=== PATIENT | female | born 1995 | race Asian ===

== ENCOUNTER 2020-10-18 11:52 | Emergency (ER) | payer OTHER ==
[~2020-10-18] VITALS: Ht 157.5 cm; Wt 51.8 kg
[2020-10-18] MEDS ORDERED: methocarbamoL 500 MG TAB PO ONE (14:00)
[2020-10-18] MEDS ORDERED: KETOROLAC TROMETHAMINE 10 MG TAB PO ONE (14:00)
[2020-10-18] MEDS ORDERED: METH-1164 PO (14:06)
[2020-10-18] MEDS ORDERED: KETO10TAB PO (14:06)
[2020-10-18 14:15] VITALS: BP 119/74
== END 2020-10-18 14:16 | disposition home or self-care (01) ==
LOC: M ED 11:52
DX: M54.9 Dorsalgia, unspecified (principal); M79.673 Pain in unspecified foot; Z88.8 Allergy status to other drugs, medicaments and biological substances

== ENCOUNTER → 2022-06-15 | Outpatient (CLI) | payer OTHER ==
[~2022-06-15] MED LIST: KETO10TAB PO; METH-1164 PO
== END ==
LOC: M WHC 11:10
PROVIDERS: ATTEND Advanced Practice Midwife
DX: Z34.83 Encounter for supervision of other normal pregnancy, third trimester (principal)

== ENCOUNTER 2022-07-28 05:25 | Inpatient (IN) | payer OTHER ==
[~2022-07-28] VITALS: Ht 157.5 cm; Wt 69.0 kg
[2022-07-28] VITALS (9 sets, daily range): BP systolic 99–133; BP diastolic 51–72
[~2022-07-28 05:25] MED LIST changes: +CVS1CAP2 PO; +IRON65TA2 PO; +PRENTAB53 PO; +VITA-243 PO
[2022-07-28] MEDS ORDERED: HOME MED LIST COMPLETE! XX SCH (05:45)
[2022-07-28] MEDS ORDERED: LACTATED RINGER'S 1000 ML IV STA (06:00)
[2022-07-28 06:09] LABS: HEMATOCRIT 38.6 % (36.0-47.0); HEMOGLOBIN 12.1 g/dl (12.0-15.5); MEAN CORPUSCULAR HEMOGLOBIN 22.3 pg (27.0-33.0); MEAN CORPUSCULAR HGB CONC 31.3 g/dl (32.0-36.5); MEAN CORPUSCULAR VOLUME 71.1 fl (80.0-96.0); PLATELET COUNT, AUTOMATED 226 10^3/uL (150-450); RED BLOOD COUNT 5.43 10^6/uL (4.00-5.40)
[2022-07-28] MEDS ORDERED: LR 1,000 ML IV SCH ×2 (06:10→09:45)
[2022-07-28] MEDS ORDERED: ceFAZolin SOD 2 GM in IV 1 EA IV ONE (06:10)
[2022-07-28] MEDS ORDERED: BUPIVACAINE HCL 0.25% 10ML VIAL SC ONE (06:10)
[2022-07-28] MEDS ORDERED: BICITRA 30ML SOLN UDC PO ONE (07:00)
[2022-07-28] MEDS ORDERED: MORPHINE PRES-FREE INJ 10 MG/10 ML VIAL As Ordered ONE (07:15)
[2022-07-28] MEDS ORDERED: ONDANSETRON 4MG 2ML VIAL As Ordered ONE ×2 (07:15→10:38)
[2022-07-28] MEDS ORDERED: OXYTOCIN 30UNITS IN 0.9% NaCl 500ML IV BAG As Ordered ONE ×2 (07:15→10:04)
[2022-07-28] MEDS ORDERED: OXYTOCIN INJ 10UNITS/ML 1ML VIAL As Ordered ONE (07:16)
[2022-07-28] MEDS ORDERED: SIMETHICONE 80MG CHEW TAB PO PRN (08:10)
[2022-07-28] MEDS ORDERED: RHOGAM 300MCG (1500IU) INJ IM SCH (08:10)
[2022-07-28] MEDS ORDERED: OXYTOCIN DRIP 30 UNITS in IV 1 EA IV SCH (08:10)
[2022-07-28] MEDS ORDERED: ANUSOL HC CREAM 30GM TOP PRN (08:10)
[2022-07-28] MEDS ORDERED: METOCLOPRAMIDE INJ 10MG/2ML VIAL IV PRN ×2 (08:10→09:45)
[2022-07-28] MEDS ORDERED: oxyCODONE 5MG TAB PO PRN ×3 (08:10→09:45)
[2022-07-28] MEDS ORDERED: MORPHINE 2 MG/ML 1ML VIAL IV PRN (08:10)
[2022-07-28] MEDS ORDERED: ONDANSETRON 4MG 2ML VIAL IV PRN ×2 (08:10→09:45)
[2022-07-28] MEDS ORDERED: ACETAMINOPHEN 500 MG TAB PO PRN (08:10)
[2022-07-28] MEDS ORDERED: ePHEDrine SULFATE 25 MG/5 ML(5MG/ML) SYRINGE As Ordered ONE (08:28)
[2022-07-28] MEDS ORDERED: ACETAMINOPHEN 1000MG 100ML IV BAG As Ordered ONE (08:31)
[2022-07-28] MEDS ORDERED: KETOROLAC 60MG 2ML VIAL As Ordered ONE (08:52)
[2022-07-28] MEDS: PRENATAL VITAMINS CHEWABLE TABLET PO SCH (09:00)
[2022-07-28] MEDS: DOCUSATE SODIUM 100MG CAPSULE PO SCH ×2 (09:00→20:57)
[2022-07-28 09:14] LABS: CORD GAS ABE A -4.5; CORD GAS HCO3 A 24.2 MEQ/L; CORD GAS O2 SAT A 60.9 %; CORD GAS PH A 7.223 UNITS; CORD GAS PO2 A 30.1 mmHg; CORD GAS SBC A 19.9 MEQ/L
[2022-07-28 09:16] LABS: CORD GAS ABE V -2.6; CORD GAS HCO3 V 23.2 MEQ/L; CORD GAS O2 SAT V 79.2 %; CORD GAS PCO2 V 43.8 mmHg; CORD GAS PH V 7.342 UNITS; CORD GAS SBC V 21.9 MEQ/L; CORD GAS TCO2 V 24.6 MEQ/L
[2022-07-28] MEDS: SLF 3 ML SYR IV SCH ×2 (09:45→17:45)
[2022-07-28] MEDS ORDERED: fentaNYL 100 MCG/2 ML INJECTION IV PRN (09:45)
[2022-07-28] MEDS ORDERED: **NOTE PATIENT COMMENT** MISC XX SCH (09:45)
[2022-07-28] MEDS ORDERED: NALOXONE INJ 0.4MG/1ML VIAL IV PRN ×2 (09:45)
[2022-07-28] MEDS ORDERED: diphenhydrAMINE 50MG/ML VIAL IV PRN (09:45)
[2022-07-28] MEDS ORDERED: METOCLOPRAMIDE INJ 10MG/2ML VIAL As Ordered ONE (09:52)
[2022-07-28] MEDS: LR 1,000 ML IV SCH ×2 (10:09→16:10)
[2022-07-28] MEDS: ENOXAPARIN 40MG/0.4ML SYRINGE (J1650 PER 10MG) SC SCH (15:00)
[2022-07-28] MEDS: KETOROLAC 30 MG/ML 1ML VIAL IV SCH ×2 (15:00→20:57)
[2022-07-29] MEDS: SLF 3 ML SYR IV SCH (01:45)
[2022-07-29 02:00] VITALS: BP 97/53
[2022-07-29] MEDS: KETOROLAC 30 MG/ML 1ML VIAL IV SCH (02:45)
[2022-07-29 06:00] VITALS: BP 95/53
[2022-07-29 07:07] LABS: HEMATOCRIT 30.8 % (36.0-47.0); MEAN CORPUSCULAR HEMOGLOBIN 23.1 pg (27.0-33.0); MEAN CORPUSCULAR HGB CONC 32.1 g/dl (32.0-36.5); PLATELET COUNT, AUTOMATED 172 10^3/uL (150-450); RED BLOOD COUNT 4.28 10^6/uL (4.00-5.40); WHITE BLOOD COUNT 15.8 10^3/uL (4.0-10.0)
[2022-07-29 07:08] LABS: HEMOGLOBIN 9.9 g/dl (12.0-15.5)
[2022-07-29] MEDS: PRENATAL VITAMINS CHEWABLE TABLET PO SCH (08:32)
[2022-07-29] MEDS: DOCUSATE SODIUM 100MG CAPSULE PO SCH ×2 (08:32→20:32)
[2022-07-29 10:00] VITALS: BP 107/55
[2022-07-29] MEDS: IBUPROFEN 800 MG TAB PO SCH ×2 (10:25→19:13)
[2022-07-29 14:00] VITALS: BP 105/61
[2022-07-29] MEDS: ENOXAPARIN 40MG/0.4ML SYRINGE (J1650 PER 10MG) SC SCH (14:59)
[2022-07-29 18:00] VITALS: BP 101/54
[2022-07-29 22:00] VITALS: BP 121/60
[2022-07-30 02:00] VITALS: BP 113/63
[2022-07-30] MEDS: IBUPROFEN 800 MG TAB PO SCH ×2 (02:47→12:15)
[2022-07-30 06:00] VITALS: BP 92/56
[2022-07-30] MEDS: DOCUSATE SODIUM 100MG CAPSULE PO SCH (08:17)
[2022-07-30] MEDS: PRENATAL VITAMINS CHEWABLE TABLET PO SCH (08:17)
[2022-07-30] MEDS ORDERED: MEASLES,MUMPS,RUBELLA VACCINE INJ (MMR-II) SC.IMMUN ONE (09:00)
== END 2022-07-30 13:30 | disposition home or self-care (01) | DRG 773 ==
LOC: M LDI 05:25 → M OBS 11:04
PROVIDERS: ADMIT Obstetrics & Gynecology; ATTEND Obstetrics & Gynecology
PROC: 10D00Z1 Extraction of Products of Conception, Low, Open Approach (ICD-10-PCS; principal; 2022-07-28 07:30)
DX: O32.1XX0 Maternal care for breech presentation, not applicable or unspecified (principal); Z3A.39 39 weeks gestation of pregnancy; Z37.0 Single live birth

== ENCOUNTER 2022-11-08 06:59 | Emergency (ER) | payer OTHER ==
[~2022-11-08] VITALS: Ht 157.5 cm; Wt 65.4 kg
[2022-11-08 07:00] VITALS: BP 139/77; O2SAT 100
[2022-11-08 07:06] VITALS: TEMP 97.9
== END 2022-11-08 09:38 | disposition home or self-care (01) ==
LOC: M ED 06:59
DX: J02.9 Acute pharyngitis, unspecified (principal); R05.9 Cough, unspecified

== ENCOUNTER 2023-10-15 11:15 | Emergency (ER) | payer OTHER ==
[2023-10-15] MEDS ORDERED: KETOROLAC 30 MG/ML 1ML VIAL IV ONE (12:05)
[2023-10-15] MEDS: diazePAM 5MG TABLET PO ONE (12:17)
[2023-10-15] MEDS: KETOROLAC 30 MG/ML 1ML VIAL IM ONE (12:18)
[2023-10-15] MEDS: ACETAMINOPHEN 500 MG TAB PO ONE (13:35)
[2023-10-15] MEDS: methocarbamoL 500 MG TAB PO ONE (13:35)
[2023-10-15] MEDS ORDERED: MULTTAB20 PO (13:50)
[2023-10-15] MEDS ORDERED: HOME MED LIST COMPLETE! XX SCH (13:50)
[2023-10-15] MEDS ORDERED: METH-1164 PO (14:37)
[2023-10-15] MEDS ORDERED: NAPR-837 PO (14:37)
[2023-10-15 14:57] VITALS: BP 109/62; TEMP 97.9; O2SAT 100
== END 2023-10-15 14:59 | disposition home or self-care (01) ==
LOC: M ED 11:15
DX: M62.838 Other muscle spasm (principal); Z88.2 Allergy status to sulfonamides; Z88.8 Allergy status to other drugs, medicaments and biological substances; Z79.810 Long term (current) use of selective estrogen receptor modulators (SERMs); Z79.899 Other long term (current) drug therapy
CPT/HCPCS: 96372; 99283; J1885